=== PATIENT | male | born 1950 | race Caucasian/White ===

== ENCOUNTER 2018-10-24 23:53 | Inpatient (IN) | payer MEDICARE ==
[~2018-10-24] VITALS: Ht 177.8 cm; Wt 96.6 kg
--- NOTE | 2018-10-25 00:05 | NUR ---
PAtient WILL barrera #[id number] from [facility] on a 5250 hold. Is here for medical clearance. Patient AAOX1-2. In no acute distress. Denies any pain or SOB. No cardiovascular concern. No /GI concern. Continue to monitor. Bed on lock and low position. Fall precaution per protocol.
--- NOTE | 2018-10-25 00:30 | NUR ---
Patient wand by security.
[2018-10-25 00:57] LABS: *BILIRUBIN,URIN NEGATIVE (NEGATIVE); *BLOOD, URINE NEGATIVE (NEGATIVE); *COLOR,URINE YELLOW (YELLOW); *KETONES,URINE 1+ (NEGATIVE); *UROBILINOGEN,URINE 0.2 E.U./dl (NORMAL); LEUKOCYTE ESTERASE ,URINE TRACE (NEGATIVE); NITRITE, URINE NEGATIVE (NEGATIVE); PH,URINE 5.5 (5.0-8.0); UGLUCOSE 2+ (NEGATIVE)
[2018-10-25 01:19] LABS: BASOPHILS % (AUTO) 0.3 % (0.0-2.0); EOSINOPHILS # (AUTO) 0.1 K/uL (0.0-0.7); EOSINOPHILS % (AUTO) 0.8 % (0.0-7.0); HEMATOCRIT 46.7 % (36.7-47.1); HEMOGLOBIN 15.9 g/dL (12.5-16.3); LYMPHOCYTES # (AUTO) 1.6 K/uL (20.0-40.0); LYMPHOCYTES % (AUTO) 15.5 % (20.5-51.5); MEAN CORPUSCULAR HEMOGLOBIN 30.4 uug (23.8-33.4); MEAN CORPUSCULAR HGB CONC 34 g/dL (32.5-36.3); MEAN CORPUSCULAR VOLUME 89.4 fL (73.0-96.2); MONOCYTES # (AUTO) 0.9 K/uL (2.0-10.0); MONOCYTES % (AUTO) 8.8 % (0.0-11.0); NEUTROPHILS # (AUTO) 7.7 K/uL (1.8-8.9); NEUTROPHILS % (AUTO) 74.6 % (38.5-71.5); PLATELET COUNT (AUTO) 272 K/uL (152-348); RED BLOOD CELL COUNT(AUTO) 5.23 MIL/uL (4.06-5.63); WHITE BLOOD COUNT (AUTO) 10.4 K/uL (3.6-10.2)
[2018-10-25 01:21] LABS: ALANINE AMINOTRANSFERASE 23 U/L (16-63); ALKALINE PHOSPHATASE 90 U/L (50-136); ASPARTATE AMINOTRANSFERASE 11 U/L (15-37); BILIRUBIN,DIRECT 0.2 mg/dL (0.0-0.2); BILIRUBIN,TOTAL 0.8 mg/dL (0.2-1.0); CARBON DIOXIDE 26 mmol/L (21-32); CHLORIDE 99 mmol/L (98-107); ETHANOL < 3 MG/DL (0-0); GLUCOSE 275 mg/dL (74-106); POTASSIUM 4.1 mmol/L (3.5-5.1); TOTAL PROTEIN, SERUM 7.1 g/dL (6.4-8.2); UREA NITROGEN, BLOOD 20 mg/dL (7-18)
[2018-10-25 01:23] LABS: *CLARITY,URINE HAZY (CLEAR)
[2018-10-25 01:24] LABS: BACTERIA,URINE FEW /HPF (NONE SEEN); RBC,URINE 0-3 /HPF (0-3); SQUAMOUS EPITHELIAL CELL,UR MODERATE /HPF (NONE SEEN)
[2018-10-25 01:26] LABS: ACETAMINOPHEN < 2.0 ug/mL (10-30)
[2018-10-25 01:39] LABS: *AMPHETAMINE, URINE NEGATIVE (NEGATIVE); *BARBITURATE, URINE NEGATIVE (NEGATIVE); *CANNABINOID, URINE NEGATIVE (NEGATIVE); *COCCAINE, URINE NEGATIVE (NEGATIVE); *OPIATE, URINE NEGATIVE (NEGATIVE); *PHENCYCLIDINE SCREEN,URINE NEGATIVE (NEGATIVE)
--- NOTE | 2018-10-25 02:03 | NUR ---
Patient asleep at this time. In no acute distress. Continue to monitor.
[2018-10-25] MEDS ORDERED: MAGNESIUM HYDROXIDE 30 ML LIQUID UDC PO PRN (03:15)
[2018-10-25] MEDS ORDERED: MAG HYDROX/AL HYDROX/SIMETH 30 ML LIQUID UDC PO PRN (03:15)
[2018-10-25] MEDS ORDERED: TEMAZEPAM 7.5 MG CAPSULE PO PRN (03:15)
--- NOTE | 2018-10-25 03:25 | NUR ---
Report given to FEI Manley. Patient to be transfer to MHU room 141A.
--- NOTE | 2018-10-25 03:33 | NUR ---
Pt. admitted to MHU Room 141A , under care of Dr. Field. Belongs List completed
[2018-10-25 03:35] VITALS: BP 140/98
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
[2018-10-25] MEDS ORDERED: HALO5TAB PO ×2 (04:40)
[2018-10-25] MEDS ORDERED: FURO-152 PO (04:40)
[2018-10-25] MEDS ORDERED: FOLI1TAB16 PO (04:40)
[2018-10-25] MEDS ORDERED: CYAN100T3 PO (04:40)
[2018-10-25] MEDS ORDERED: MULT1TAB73 PO (04:40)
[2018-10-25] MEDS ORDERED: TRAZ-182 PO (04:40)
[2018-10-25] MEDS ORDERED: LORAZEPAM 2 MG/1 ML VIAL IM ONE (05:30)
[2018-10-25] MEDS ORDERED: diphenhydrAMINE 50 MG/1 ML VIAL IM ONE (05:30)
[2018-10-25] MEDS ORDERED: HALOPERIDOL LACTATE 5 MG/1 ML VIAL IM ONE (05:30)
--- NOTE | 2018-10-25 05:40 | NUR ---
pt only stayed in bed about 5 minutes, before climbing out of bed, almost falling, due to unsteady gait. he was placed in the ravi chair for safety, but kept removing the table, and attempting to get up. pt began to posture with his fists, and became very confused, believing we were holding his daughter, against her will. security was paged, but he remained unmanageable. Dr Field was called, and he was given an IM injection of haldol 5 / benadryl 50 / ativan 2, at this time, 0540.
--- NOTE | 2018-10-25 06:30 | NUR ---
appears calmer, now.
[2018-10-25 07:30] VITALS: BP 112/79
[2018-10-25] MEDS: FOLIC ACID 1 MG TABLET PO SCH (08:46)
[2018-10-25] MEDS: CYANOCOBALAMIN 100 MCG TABLET PO SCH (08:46)
[2018-10-25] MEDS: LORAZEPAM 0.5 MG TABLET PO PRN (08:46)
[2018-10-25] MEDS: FUROSEMIDE 20 MG TABLET PO SCH (08:47)
[2018-10-25] MEDS: MULTIVITAMINS,THERAPEUTIC TABLET PO SCH (08:47)
[2018-10-25] MEDS ORDERED: Medication Not On Formulary EA (Multivitamins (Multivitamin) 1 EACH) PO SCH (09:00)
[2018-10-25] MEDS: CEphaleXIN 500 MG CAPSULE PO SCH ×2 (11:30→17:56)
[2018-10-25 16:00] VITALS: BP 124/79
--- NOTE | 2018-10-25 16:11 | NUR ---
Initial Discharge Note: Patient is a 68 year old male who currently lives at home alone [[address], [place] [address]; ]. Per patient he would like to return when he is ready for discharge. Patient has a daughter, Cordelia Combs, however, no contact information has been provided at this time. composite bond worker to follow-up. Patient appears to have some cognitive impairment and further assessment will need to take place to determine if patient can live safely in his home alone. composite bond worker will continue to collaborate with patient and family on a safe and proper discharge.
[2018-10-25] MEDS: DIVALPROEX 250 MG TABLET.DR PO SCH (20:04)
[2018-10-25 21:02] VITALS: BP 110/74
--- NOTE | 2018-10-25 22:00 | NUR ---
received to care, up in ravi chair, appearing anxious at times, but is directable. 1;1 sitter remains at side, for safety. compliant with medications, snack, and staff direction. as of 2199, he appears to be asleep, no distress noted. will continue to monitor closely.
--- NOTE | 2018-10-26 06:00 | NUR ---
slept 7.5 hours
[2018-10-26 07:05] LABS: MAGNESIUM 1.8 mg/dL (1.8-2.4); PHOSPHOROUS 3.7 mg/dL (2.5-4.9)
[2018-10-26 07:30] VITALS: BP 112/61
[2018-10-26] MEDS: MULTIVITAMINS,THERAPEUTIC TABLET PO SCH (08:07)
[2018-10-26] MEDS: CEphaleXIN 500 MG CAPSULE PO SCH ×2 (08:07→16:31)
[2018-10-26] MEDS: FOLIC ACID 1 MG TABLET PO SCH (08:07)
[2018-10-26] MEDS: CYANOCOBALAMIN 100 MCG TABLET PO SCH (08:08)
[2018-10-26] MEDS: DIVALPROEX 250 MG TABLET.DR PO SCH ×2 (08:08→20:03)
[2018-10-26] MEDS: FUROSEMIDE 20 MG TABLET PO SCH (08:08)
[2018-10-26 08:13] LABS: THYROID STIMULATING HORMONE 3.049 mIU/mL (0.358-3.740)
[2018-10-26 16:00] VITALS: BP 114/71
[2018-10-26 21:06] VITALS: BP 118/78
[2018-10-27 07:59] VITALS: BP 125/76
[2018-10-27] MEDS: FUROSEMIDE 20 MG TABLET PO SCH (08:07)
[2018-10-27] MEDS: MULTIVITAMINS,THERAPEUTIC TABLET PO SCH (08:07)
[2018-10-27] MEDS: FOLIC ACID 1 MG TABLET PO SCH (08:07)
[2018-10-27] MEDS: CEphaleXIN 500 MG CAPSULE PO SCH ×2 (08:07→17:00)
[2018-10-27] MEDS: DIVALPROEX 250 MG TABLET.DR PO SCH ×2 (08:07→20:14)
[2018-10-27] MEDS: CYANOCOBALAMIN 100 MCG TABLET PO SCH (08:07)
[2018-10-27] MEDS: LORAZEPAM 0.5 MG TABLET PO PRN (08:26)
[2018-10-27 16:45] VITALS: BP 118/70
[2018-10-27 20:00] VITALS: BP 121/73
--- NOTE | 2018-10-27 21:49 | NUR ---
RECEIVED PATIENT IN HIS ROOM AND WAS PLEASANT UPON APPROACH.DENIES HEARING VOICES.DENIES PAIN OR DISCOMFORT.COMPLIANT WITH MEDICATIONS.WILL CONTINUE TO MONITOR.
--- NOTE | 2018-10-28 06:25 | NUR ---
HE SLEPT FOR APPROX. 7HRS. NO COMPLAINT LODGED. SHOWER TAKEN AND BACK IN BED.
[2018-10-28 07:30] VITALS: BP 121/66
[2018-10-28] MEDS: DIVALPROEX 250 MG TABLET.DR PO SCH ×2 (08:09→20:09)
[2018-10-28] MEDS: CYANOCOBALAMIN 100 MCG TABLET PO SCH (08:10)
[2018-10-28] MEDS: MULTIVITAMINS,THERAPEUTIC TABLET PO SCH (08:10)
[2018-10-28] MEDS: FOLIC ACID 1 MG TABLET PO SCH (08:10)
[2018-10-28] MEDS: FUROSEMIDE 20 MG TABLET PO SCH (08:10)
[2018-10-28] MEDS: CEphaleXIN 500 MG CAPSULE PO SCH ×2 (08:10→16:02)
[2018-10-28] MEDS: LORAZEPAM 0.5 MG TABLET PO PRN (08:13)
[2018-10-28 15:44] VITALS: BP 114/74
--- NOTE | 2018-10-28 17:24 | NUR ---
patient is alert, oriented x1-2, no sob, resp even nonlabored,skin warm and dry to touch, no aggressive or combative behaviour noted, patient stayed most of the time in his room, no acute distress noted.
[2018-10-28 20:13] VITALS: BP 126/70
[2018-10-29] MEDS: ACETAMINOPHEN 325 MG TABLET PO PRN (06:09)
--- NOTE | 2018-10-29 06:31 | NUR ---
End of shift report: Patient slept through out the night. Patient is compliant with medication administration. Patient is cooperative upon interaction and communication. Patient denies any SI/HI at this time. Patient is hyperverbal and paranoid thoughts that run on tangents. Patient is alert and oriented x2. Will continue to monitor and endorse POC to oncoming nurse,
[2018-10-29 07:30] VITALS: BP 133/82
[2018-10-29] MEDS: FOLIC ACID 1 MG TABLET PO SCH (08:20)
[2018-10-29] MEDS: MULTIVITAMINS,THERAPEUTIC TABLET PO SCH (08:20)
[2018-10-29] MEDS: FUROSEMIDE 20 MG TABLET PO SCH (08:20)
[2018-10-29] MEDS: CYANOCOBALAMIN 100 MCG TABLET PO SCH (08:20)
[2018-10-29] MEDS: DIVALPROEX 250 MG TABLET.DR PO SCH ×2 (08:20→20:19)
[2018-10-29] MEDS: CEphaleXIN 500 MG CAPSULE PO SCH (08:20)
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
[2018-10-29 15:06] VITALS: BP 118/74
[2018-10-29 20:58] VITALS: BP 121/76
[2018-10-30 07:19] VITALS: BP 101/60
[2018-10-30] MEDS: CYANOCOBALAMIN 100 MCG TABLET PO SCH (08:00)
[2018-10-30] MEDS: MULTIVITAMINS,THERAPEUTIC TABLET PO SCH (08:00)
[2018-10-30] MEDS: FUROSEMIDE 20 MG TABLET PO SCH (08:00)
[2018-10-30] MEDS: DIVALPROEX 250 MG TABLET.DR PO SCH ×2 (08:01→21:01)
[2018-10-30] MEDS: FOLIC ACID 1 MG TABLET PO SCH (08:01)
--- NOTE | 2018-10-30 11:44 | NUR ---
RECEIVED PATIENT ALERT ORIENTED X 3, PATIENT AMBULATORY SELF CARE, COMPLIANT WITH MEDICATION, PATIENT APPROACH NURSING STATION, ASKING REGARDING HIS DISCHARGE, ASSESS PATIENT IS THERE ANY REASON WHY HE WANTED TO GO HOME, PATIENT VERBALIZES REGARDING HIS MOM PLAN, CLARIFY INFORMATION WITH SW, PATIENT MOM 10 YEARS AGO, PATIENT REDIRECT TO REALITY, WILL CONTINUE MONITOR PATIENT BEHAVIOR
[2018-10-30 16:21] VITALS: BP 112/67
[2018-10-30 19:59] VITALS: BP 127/77
[2018-10-31] MEDS: ACETAMINOPHEN 325 MG TABLET PO PRN ×2 (01:34→10:07)
[2018-10-31] MEDS: LORAZEPAM 0.5 MG TABLET PO PRN (01:34)
--- NOTE | 2018-10-31 05:36 | NUR ---
GPS/NSG Patient first observed awake in the day room, interacting with peers, pt. appears to have a low mood with flat affect. Observed walking in hallway with steady gait, alert, oriented to name, time, however appears to have periods with confusion and disorganized altered thought process. Compliant with HS medication, prn for insomnia administered as ordered per pt. request with ineffective outcome, prn for headache and anxiety administered as ordered by patient request with effective outcome. Patient observed restless through out night. Continue to monitor for safety.
[2018-10-31 07:30] VITALS: BP 134/87
[2018-10-31] MEDS: MULTIVITAMINS,THERAPEUTIC TABLET PO SCH (08:06)
[2018-10-31] MEDS: FOLIC ACID 1 MG TABLET PO SCH (08:06)
[2018-10-31] MEDS: DIVALPROEX 250 MG TABLET.DR PO SCH ×2 (08:06→20:42)
[2018-10-31] MEDS: CYANOCOBALAMIN 100 MCG TABLET PO SCH (08:06)
[2018-10-31] MEDS: FUROSEMIDE 20 MG TABLET PO SCH (08:06)
--- NOTE | 2018-10-31 11:57 | NUR ---
Discharge planning: tube worker faxed a referral packet to [facility] [ [id number] [place] [address]; ] and is awaiting response from admissions department.
[2018-10-31] MEDS: HYDROCODONE/APAP 5-325MG TABLET PO PRN (14:18)
--- NOTE | 2018-10-31 15:13 | NUR ---
APS Report: Sterilisation Technician made an APS report for self-neglect with [facility] [[phone]] - Sterilisation Technician Marilee Mckinley on 10/31/18. SOC 341 was completed and faxed to Marilee [[phone]]. Addendum: 10/31/18 at 1530 by MERCED SIMPSON A copy of the APS report SOC 341 form was placed in the patient's chart.
[2018-10-31 16:11] VITALS: BP 127/75
[2018-10-31 20:12] VITALS: BP 143/76
--- NOTE | 2018-11-01 06:34 | NUR ---
GPS. PATIENT REMAINED COOPERATIVE WITH CARE AND MEDICATIONS, PATIENT SLEPT 5.5 HOURS. PATIENT AMBULATED SAFELY TO THE BATHROOM UNASSISTED. NO PRN MEDS GIVEN DURING THE SHIFT
[2018-11-01 07:30] VITALS: BP 112/65
[2018-11-01 07:31] LABS: CREATININE 0.9 mg/dL (0.6-1.3); POTASSIUM 4.4 mmol/L (3.5-5.1)
[2018-11-01] MEDS: CYANOCOBALAMIN 100 MCG TABLET PO SCH (08:45)
[2018-11-01] MEDS: DIVALPROEX 250 MG TABLET.DR PO SCH ×2 (08:45→20:25)
[2018-11-01] MEDS: FOLIC ACID 1 MG TABLET PO SCH (08:46)
[2018-11-01] MEDS: FUROSEMIDE 20 MG TABLET PO SCH (08:46)
[2018-11-01] MEDS: MULTIVITAMINS,THERAPEUTIC TABLET PO SCH (08:46)
[2018-11-01] MEDS ORDERED: DEXTROSE 50% 50 ML DISP.SYRIN IV PRN (10:30)
[2018-11-01] MEDS: METFORMIN HCL 500 MG TABLET PO SCH ×2 (11:12→17:01)
[2018-11-01] MEDS: BLOOD SUGAR DIAGNOSTIC 1 EACH STRIP VI SCH ×3 (11:35→20:12)
[2018-11-01] MEDS: INSULIN REGULAR, HUMAN 300 UNIT/3 ML VIAL SQ PRN ×2 (11:40→16:49)
[2018-11-01] MEDS: HYDROCODONE/APAP 5-325MG TABLET PO PRN (15:45)
[2018-11-01 16:00] VITALS: BP 136/86
[2018-11-01 20:11] VITALS: BP 114/73
[2018-11-01] MEDS: INSULIN REGULAR, HUMAN 300 UNITS/3 ML VIAL SQ PRN (20:15)
--- NOTE | 2018-11-02 06:09 | NUR ---
PATIENT SLEPT FOR APPROX 7.30 HOURS THROUGH THE NIGHT. HE IS NOTED DELUSIONAL, AND HE WAS OBSERVED CRYING, HE STATED, "MY MOTHER 4 DAYS AGO AND I NEED TO GO SEE HER, IT IS THE LAST TIME I AM GOING TO SEE HER". (THERE IS NO INFORMATION ABOUT HIS MOTHER PASSING RECENTLY) HE ALSO ADDED THAT HE MISSES HIS TWO WIVES . PATIENT WAS REASSURED AND REDIRECTED. WILL CONTINUE TO MONITOR.
[2018-11-02] MEDS: BLOOD SUGAR DIAGNOSTIC 1 EACH STRIP VI SCH ×4 (06:38→20:24)
[2018-11-02 07:30] VITALS: BP 114/84
[2018-11-02] MEDS: METFORMIN HCL 500 MG TABLET PO SCH ×2 (08:31→18:35)
[2018-11-02] MEDS: DIVALPROEX 250 MG TABLET.DR PO SCH ×2 (08:33→20:39)
[2018-11-02] MEDS: MULTIVITAMINS,THERAPEUTIC TABLET PO SCH (09:00)
--- NOTE | 2018-11-02 09:30 | NUR ---
Patient blood glucose was 195mg/dl. Per sliding scale protocol, patient was to be given 3 units of insulin but he refused the medication. Will continue to monitor patient.
[2018-11-02] MEDS: FOLIC ACID 1 MG TABLET PO SCH (10:29)
[2018-11-02] MEDS: FUROSEMIDE 20 MG TABLET PO SCH (10:29)
[2018-11-02] MEDS: HYDROCODONE/APAP 5-325MG TABLET PO PRN ×2 (10:31→12:05)
[2018-11-02] MEDS: CYANOCOBALAMIN 100 MCG TABLET PO SCH (10:33)
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
[2018-11-02] MEDS: INSULIN REGULAR, HUMAN 300 UNIT/3 ML VIAL SQ PRN ×2 (15:10→16:52)
[2018-11-02 16:00] VITALS: BP 113/72
[2018-11-02] MEDS: INSULIN REGULAR, HUMAN 300 UNITS/3 ML VIAL SQ PRN (20:42)
[2018-11-02 20:53] VITALS: BP 133/87
--- NOTE | 2018-11-03 06:59 | NUR ---
patient slept well at night. was calm and cooperative, compliant with care and meds.
[2018-11-03 07:30] VITALS: BP 110/65
[2018-11-03] MEDS: BLOOD SUGAR DIAGNOSTIC 1 EACH STRIP VI SCH ×4 (07:41→20:29)
[2018-11-03] MEDS: INSULIN REGULAR, HUMAN 300 UNIT/3 ML VIAL SQ PRN ×3 (07:50→16:46)
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
[2018-11-03] MEDS: METFORMIN HCL 500 MG TABLET PO SCH ×2 (08:44→17:27)
[2018-11-03] MEDS: MULTIVITAMINS,THERAPEUTIC TABLET PO SCH (09:00)
[2018-11-03] MEDS: FOLIC ACID 1 MG TABLET PO SCH (09:46)
[2018-11-03] MEDS: FUROSEMIDE 20 MG TABLET PO SCH (09:47)
[2018-11-03] MEDS: CYANOCOBALAMIN 100 MCG TABLET PO SCH (09:48)
[2018-11-03] MEDS: DIVALPROEX 250 MG TABLET.DR PO SCH ×2 (10:30→20:29)
[2018-11-03] MEDS: glipiZIDE 5 MG TABLET PO SCH ×2 (10:30→16:47)
[2018-11-03] MEDS: HYDROCODONE/APAP 5-325MG TABLET PO PRN (10:31)
[2018-11-03 15:57] VITALS: BP 109/71
--- NOTE | 2018-11-03 17:50 | NUR ---
As per daughter who spoke with patient, "my father is stating that he still wants to kill himself he doesn't have a concrete plan yet" pt's daughter informed that patient is been compliant with medication regimen he's calm cooperative and he has not verbalized any SI to staff". Charge nurse will be informed.
[2018-11-03 20:47] VITALS: BP 99/68
[2018-11-03] MEDS: INSULIN REGULAR, HUMAN 300 UNITS/3 ML VIAL SQ PRN (22:29)
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
[2018-11-04] MEDS: BLOOD SUGAR DIAGNOSTIC 1 EACH STRIP VI SCH ×3 (06:34→16:46)
[2018-11-04 07:30] VITALS: BP 96/53
[2018-11-04] MEDS: INSULIN REGULAR, HUMAN 300 UNIT/3 ML VIAL SQ PRN ×3 (08:16→16:47)
[2018-11-04] MEDS: MULTIVITAMINS,THERAPEUTIC TABLET PO SCH (09:17)
[2018-11-04] MEDS: DIVALPROEX 250 MG TABLET.DR PO SCH (09:17)
[2018-11-04] MEDS: FUROSEMIDE 20 MG TABLET PO SCH (09:17)
[2018-11-04] MEDS: glipiZIDE 5 MG TABLET PO SCH ×2 (09:17→16:45)
[2018-11-04] MEDS: CYANOCOBALAMIN 100 MCG TABLET PO SCH (09:17)
[2018-11-04] MEDS: METFORMIN HCL 500 MG TABLET PO SCH ×2 (09:17→17:00)
[2018-11-04] MEDS: FOLIC ACID 1 MG TABLET PO SCH (09:17)
--- NOTE | 2018-11-04 14:29 | NUR ---
DC NOTE: Patient will be discharged to [facility] [[address] [place] [address]; ] and transportation will be provided by ambulance at 4:00pm. Please arrange ambulance transportation for this patient. Acceptance to facility was received by Drew Nieto, admissions cook at school, who states they are ready to accept the patient today. Patient is AxOx2, denies suicidal ideation, is able to plan for self-care, and is agreeable to discharge plan. Patient daughter, Cordelia [[phone]], has been notified of discharge plan and is agreeable. Patient will follow-up with Dr. Field [psychiatrist] and Dr. Ospina [soil fertility extension specialist] at the facility. Patient has also been provided with mental health resources including [facility] [ ], [facility] Joyce [ ], and the National Suicide Prevention Lifeline [ ].
[2018-11-04 15:52] VITALS: BP 134/78
--- NOTE | 2018-11-04 17:30 | NUR ---
PATIENT DISCHARGED TO [facility] IN STABLE CONDITION. REPORT GIVEN EARLIER TO [facility]. DISCHARGE PAPERS AND INSTRUCTIONS EXPLAINED AND SIGNED BY PATIENT. BELONGINGS LIST COMPLETED AND SIGNED, VALUABLES RETURNED. PATIENT LEFT FACILITY ACCOMPANIED BY EMT VIA AMBULANCE.
== END 2018-11-04 17:45 | DRG 885 ==
LOC: ER 23:59 → GPS 10-25 03:06
PROVIDERS: ADMIT Psychiatry & Neurology Psychiatry; ATTEND Nurse Practitioner Acute Care
DX: F29 Unspecified psychosis not due to a substance or known physiological condition (principal); N17.0 Acute kidney failure with tubular necrosis; E11.65 Type 2 diabetes mellitus with hyperglycemia; N39.0 Urinary tract infection, site not specified; F03.90 Unspecified dementia, unspecified severity, without behavioral disturbance, psychotic disturbance, mood disturbance, and anxiety; F39 Unspecified mood [affective] disorder; Z91.81 History of falling; E86.0 Dehydration; E66.9 Obesity, unspecified; Z68.30 Body mass index [BMI] 30.0-30.9, adult; B96.89 Other specified bacterial agents as the cause of diseases classified elsewhere; M48.02 Spinal stenosis, cervical region
CPT/HCPCS: 36415; 70490; 80307; 83735; 84100; 84443; 85025; 87086; 97110; 97112; 97116; 97530; A4663; G0480; G0480-TC; J1200; J1630; J1815; J2060; J3490